=== PATIENT | female | born 1995 | race Two or more races ===

== ENCOUNTER → 2020-07-14 | Outpatient (CLI) | payer OTHER | END | disposition home or self-care (01) | LOC: PRENATAL 15:38 | PROVIDERS: ATTEND Obstetrics & Gynecology Maternal & Fetal Medicine | DX: O26.851 Spotting complicating pregnancy, first trimester (principal); O36.80X1 Pregnancy with inconclusive fetal viability, fetus 1; Z36.89 Encounter for other specified antenatal screening; Z3A.13 13 weeks gestation of pregnancy ==

== ENCOUNTER 2020-12-06 14:57 | Emergency (ER) | payer OTHER ==
[~2020-12-06] VITALS: Ht 149.9 cm; Wt 88.5 kg
[2020-12-06] MEDS ORDERED: PROVERA2.5 MG PO (15:19)
[2020-12-06] MEDS ORDERED: PEPCID AC20 MG PO (18:58)
[2020-12-06] MEDS ORDERED: NAPROXEN375 MG PO (18:58)
== END 2020-12-06 20:28 | disposition home or self-care (01) ==
LOC: ER 14:57
DX: N39.0 Urinary tract infection, site not specified (principal); R10.32 Left lower quadrant pain

== ENCOUNTER 2023-06-22 12:45 | Inpatient (IN) | payer OTHER ==
[~2023-06-22] VITALS: Ht 149.9 cm; Wt 78.9 kg
[~2023-06-22 12:45] MED LIST: NAPROXEN375 MG PO; PEPCID AC20 MG PO; PROVERA2.5 MG PO
[2023-07-02] MEDS ORDERED: PRENATABS RX T1 EACH PO (02:53)
[2023-07-02 04:01] LABS: HEMOGLOBIN 12.3 g/dL (12.0-15.00); MEAN CELL VOLUME 89.4 fL (80.00-100.00); MEAN CORPUSCULAR HEMOGLOBIN 30.5 pg (27.00-32.0); MEAN CORPUSCULAR HGB CONC 34.1 g/dl (32.0-36.0); PLATELET COUNT 208 K/uL (150-450); RED BLOOD COUNT 4.03 M/uL (4.00-6.00); RED CELL DISTRIBUTION WIDTH 14.5 % (11.5-14.5)
[2023-07-02 04:14] LABS: INR < 0.93; PARTIAL THROMBOPLASTIN TIME 23.5 SECONDS (22.0-34.0); PROTHROMBIN TIME 9.4 SECONDS (9.0-11.5)
[2023-07-02 04:20] LABS: ALBUMIN 3.3 gm/dL (3.4-5.0); BILIRUBIN TOTAL 0.27 mg/dL (0.3-1.2); CALCIUM 9.4 mg/dL (8.5-10.1); CREATININE SERUM 0.68 mg/dL (0.55-1.02); GFR 102.29; GLOBULINA 3.3 G/DL (2.4-3.5); POTASSIUM 4.51 mEq/L (3.5-5.1); TOTAL PROTEIN 6.6 gm/dL (6.4-8.2)
[2023-07-02 11:54] LABS: ABG pCO2 39.7 mmHg (35-45); SaO2 48.9 %
[2023-07-02 11:55] LABS: BASE EXCESS -4.7 mmol/l; BICARBONATE 20.8 mmol/l (23-25); o2 21 %
[2023-07-02 14:29] LABS: HEMATOCRIT 34.5 % (36.0-45.00); HEMOGLOBIN 11.8 g/dL (12.0-15.00); MEAN CORPUSCULAR HEMOGLOBIN 30.3 pg (27.00-32.0); PLATELET COUNT 208 K/uL (150-450); RED BLOOD COUNT 3.88 M/uL (4.00-6.00); RED CELL DISTRIBUTION WIDTH 14.5 % (11.5-14.5)
== END 2023-07-04 16:18 | disposition home or self-care (01) | DRG 807 ==
LOC: LDR 07-02 02:34 → OB/GYN 07-02 12:43
PROVIDERS: Obstetrics & Gynecology Maternal & Fetal Medicine; ADMIT Obstetrics & Gynecology; ATTEND Obstetrics & Gynecology
PROC: 10E0XZZ Delivery of Products of Conception, External Approach (ICD-10-PCS; principal; 2023-07-02)
PROC: 0KQM0ZZ Repair Perineum Muscle, Open Approach (ICD-10-PCS; 2023-07-02)
PROC: 0W8NXZZ Division of Female Perineum, External Approach (ICD-10-PCS; 2023-07-02)
PROC: 4A1HXCZ Monitoring of Products of Conception, Cardiac Rate, External Approach (ICD-10-PCS; 2023-07-02)
DX: O70.1 Second degree perineal laceration during delivery (principal); Z37.0 Single live birth; O99.824 Streptococcus B carrier state complicating childbirth; Z3A.39 39 weeks gestation of pregnancy; Z20.822 Contact with and (suspected) exposure to COVID-19